=== PATIENT | female | born 1990 | race Caucasian/White ===

== ENCOUNTER 2017-12-31 18:49 | Emergency (ER) | payer OTHER ==
[~2017-12-31] VITALS: Ht 162.6 cm; Wt 70.3 kg
[2017-12-31] MEDS ORDERED: PRENATAL PLUS1 EAC1 PO (19:39)
== END 2018-01-01 00:46 ==
LOC: ER 18:49
DX: O20.0 Threatened abortion (principal); Z34.82 Encounter for supervision of other normal pregnancy, second trimester

== ENCOUNTER 2018-05-17 17:19 | Inpatient (IN) | payer OTHER ==
[~2018-05-17] VITALS: Ht 162.6 cm; Wt 1.8 kg
[~2018-05-17 17:19] MED LIST: PRENATAL PLUS1 EAC1 PO
== END 2018-05-21 15:01 | disposition home or self-care (01) | DRG 788 ==
LOC: OBS/DEL 17:19 → OB/GYN 05-18 09:31 → LDR 05-18 09:31 → OB/GYN 05-18 13:14
PROVIDERS: ADMIT Obstetrics & Gynecology Obstetrics
PROC: 4A1HXCZ Monitoring of Products of Conception, Cardiac Rate, External Approach (ICD-10-PCS; 2018-05-18)
PROC: 0T9B70Z Drainage of Bladder with Drainage Device, Via Natural or Artificial Opening (ICD-10-PCS; 2018-05-18)
PROC: 10D00Z1 Extraction of Products of Conception, Low, Open Approach (ICD-10-PCS; principal; 2018-05-18 10:00)
DX: O82 Encounter for cesarean delivery without indication (principal); O76 Abnormality in fetal heart rate and rhythm complicating labor and delivery; Z3A.38 38 weeks gestation of pregnancy; Z37.0 Single live birth; Z22.330 Carrier of Group B streptococcus